=== PATIENT | female | born 1980 | race Hispanic/Latino ===

== ENCOUNTER 2017-11-02 19:23 | Emergency (ER) | payer SELFPAY ==
--- NOTE | 2017-11-02 20:52 | RAD REPORT ---
EXAM DESCRIPTION: CT - Head Brain Wo Cont - 11/02/2017 8:31 pm CLINICAL HISTORY: Head injury status post fall. Head pain COMPARISON: None. TECHNIQUE: Computed axial tomography of the head was obtained. IV contrast was not requested. All CT scans are performed using dose optimization technique as appropriate and may include automated exposure control or mA/KV adjustment according to patient size. FINDINGS: An intracranial bleed is not seen . The ventricles are normal in caliber. No extra-axial fluid collection is noted. Fluid within the sinuses/ mastoids is not seen. IMPRESSION: No acute intracranial abnormality is seen. If patient's symptoms persist MRI of the bra in would be recommended.
--- NOTE | 2017-11-02 21:15 | RAD REPORT ---
EXAM DESCRIPTION: RAD - Lumbar Spine 3 Views - 11/02/2017 8:55 pm CLINICAL HISTORY: Back pain FINDINGS: The alignment of the lumbar spine is satisfactory. No fracture or dislocation is seen. Minimal spondylosis involves the lumbar spine
--- NOTE | 2017-11-02 21:16 | RAD REPORT ---
EXAM DESCRIPTION: RAD - Thoracic Spine Ap/Lat - 11/02/2017 8:52 pm CLINICAL HISTORY: Back pain FINDINGS: The alignment of the thoracic spine is satisfactory. No fracture is seen. Minimal spondylosis involves the thoracic spine
--- NOTE | 2017-11-02 21:46 | ER ---
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 I hit my back and head.". Transition of care: patient was not received from another setting of care. Onset of symptoms was November 02, 2017 at 18:00. Care prior to arrival: None. 19:45 Method Of Arrival: Wheelchair lk1 19:45 Acuity: JUSTYNA 3 lk1 Triage Assessment: 19:47 General: Appears in no apparent distress. Behavior is calm, cooperative, appropriate lk1 for age. Pain: Complains of pain in back and head Pain currently is 9 out of 10 on a pain scale. Musculoskeletal: Swelling absent. 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 - Social history:: Smoking status: Patient/guardian denies using tobacco. - Family history:: not pertinent. - Hospitalizations: : No recent hospitalization is reported. Screenin:03 Abuse screen: Denies threats or abuse. Nutritional screening: No deficits noted. jd3 Tuberculosis screening: No symptoms or risk factors identified. Fall Risk Fall in past 12 months (25 points). Total Del Castillo Fall Scale indicates Low Risk Score (25-44 pts). Fall prevention measures have been instituted. Placed close to Nursing Station Frequent Obs/Assesments occuring Family Present and informed to notify staff if they need to leave bedside. Assessment: 20:01 General: Appears in no apparent distress. uncomfortable, Behavior is calm, cooperative, jd3 appropriate for age. Pain: Complains of pain in head and back Quality of pain is described as throbbing. Neuro: Level of Consciousness is awake, alert, obeys commands, Oriented to person, place, time, situation, Appropriate for age. Cardiovascular: Heart tones S1 S2 present Capillary refill < 3 seconds Patient's skin is warm and dry. Respiratory: Airway is patent Respiratory effort is even, unlabored, Respiratory pattern is regular, symmetrical, Breath sounds are clear bilaterally. GI: Abdomen is round Patient currently denies diarrhea, nausea, vomiting. : No signs and/or symptoms were reported regarding the genitourinary system. EENT: No signs and/or symptoms were reported regarding the EENT system. Derm: Skin is intact, Skin is dry, Skin is normal, Skin temperature is warm. Musculoskeletal: Circulation, motion, and sensation intact. Range of motion: intact in all extremities. 21:23 Reassessment: Patient appears in no apparent distress at this time. Patient and/or jd3 family updated on plan of care and expected duration. Pain level reassessed. Patient is alert, oriented x 3, equal unlabored respirations, skin warm/dry/pink. 22:02 Reassessment: Patient appears in no apparent distress at this time. Patient and/or jd3 family updated on plan of care and expected duration. Pain level reassessed. Patient is alert, oriented x 3, equal unlabored respirations, skin warm/dry/pink. pt reported understanding of of discharge instructions, pt assisted to to the front of the ER in wheelchair. Vital Signs: 19:48 BP 131 / 79; Pulse 71; Resp 16; Temp 97.9(O); Pulse Ox 97% on R/A; Weight 104.33 kg lk1 (R); Height 5 ft. 0 in. (152.40 cm) (R); Pain 9/10; 21:23 BP 127 / 76; Pulse 65; Resp 17 S; Pulse Ox 97% on R/A; jd3 22:04 BP 130 / 81; Pulse 65; Resp 17 S; Pulse Ox 97% on R/A; jd3 19:48 Body Mass Index 44.92 (104.33 kg, 152.40 cm) lk1 ED Course: 19:26 Patient arrived in ED. am2 19:47 Triage completed. lk1 19:50 Arm band placed on right wrist. lk1 20:01 Noé Ramires RN is Primary Nurse. jd3 20:04 Patient has correct armband on for positive identification. Bed in low position. Call jd3 light in reach. Adult w/ patient. 20:08 Daren Kirkpatrick MD is Attending Physician. rn 20:30 CT completed. Patient tolerated procedure well. Patient moved to CT via wheelchair. Patient moved back from CT. 20:31 CT Head Brain wo Cont In Process Unspecified. EDMS 20:52 X-ray completed. Portable x-ray completed in exam room. Patient tolerated procedure jb2 well. 20:52 XRAY Lumbar Spine (3 Views) In Process Unspecified. EDMS 20:52 XRAY Thoracic Spine (Ap/lat) In Process Unspecified. EDMS 21:59 No provider procedures requiring assistance completed. Patient did not have IV access jd3 during this emergency room visit. Administered Medications: No medications were administered Outcome: 21:46 Discharge ordered by . rn 21:59 Discharged to home via wheelchair. jd3 21:59 Condition: stable 21:59 Discharge instructions given to patient, family, Instructed on discharge instructions, follow up and referral plans. Demonstrated understanding of instructions, follow-up care. 22:05 Patient left the ED. jd3 Signatures: Dispatcher [employer] EDMS Tad Shabazz2 Johan Higgins Daren Kirkpatrick MD MD rn Kluge, Leah RN RN [email or web address] Lauren Chamberlain Jonathon RN RN jd3
--- NOTE | 2017-11-02 21:46 | EDPHYS ---
Physician Documentation [facility] Name: Ashli Pereyra Age: 37 yrs Sex: Female : 1980 Arrival Date: 11/02/2017 Time: 19:26 Bed 19 Private MD: ED Physician Daren Kirkpatrick HPI: 11/02 21:43 This 37 yrs old Female presents to ER via Wheelchair with complaints of Back rn Pain, Headache. 21:43 The patient presents with pain and an injury. The symptoms are located in the low back, rn thoracic area and lumbar area. Onset: The symptoms/episode began/occurred just prior to arrival. The pain does not radiate. Severity of symptoms: At their worst the symptoms were moderate, in the emergency department the symptoms are unchanged. The patient has not experienced similar symptoms in the past. Reports back pain and headache after fall from standing, was ambulatory, no LOC, not on blood thinner, no weakness or focal neurological deficit. . 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 - Social history:: Smoking status: Patient/guardian denies using tobacco. - Family history:: not pertinent. - Hospitalizations: : No recent hospitalization is reported. ROS: 21:43 Constitutional: Negative for fever, chills, and weight loss, Eyes: Negative for injury, rn pain, redness, and discharge, Neck: Negative for injury, pain, and swelling, Cardiovascular: Negative for chest pain, palpitations, and edema, Respiratory: Negative for shortness of breath, cough, wheezing, and pleuritic chest pain, Abdomen/GI: Negative for abdominal pain, nausea, vomiting, diarrhea, and constipation, Back: + for injury and pain MS/Extremity: Negative for injury and deformity, Skin: Negative for injury, rash, and discoloration, Neuro: Negative for weakness, numbness, tingling, and seizure. Exam: 21:43 Constitutional: This is a well developed, well nourished patient who is awake, alert, rn and in no acute distress. Head/Face: Normocephalic, atraumatic. Eyes: Pupils equal round and reactive to light, extra-ocular motions intact. Lids and lashes normal. Conjunctiva and sclera are non-icteric and not injected. Cornea within normal limits. Periorbital areas with no swelling, redness, or edema. Neck: Trachea midline, no thyromegaly or masses palpated, and no cervical lymphadenopathy. Supple, full range of motion without nuchal rigidity, or vertebral point tenderness. No Meningismus. Cardiovascular: Regular rate and rhythm with a normal S1 and S2. No gallops, murmurs, or rubs. Normal PMI, no JVD. No pulse deficits. Respiratory: Lungs have equal breath sounds bilaterally, clear to auscultation and percussion. No rales, rhonchi or wheezes noted. No increased work of breathing, no retractions or nasal flaring. Abdomen/GI: Soft, non-tender, with normal bowel sounds. No distension or tympany. No guarding or rebound. No evidence of tenderness throughout. Back: + midline upper lumbar and lower thoracic tenderness, no stepoff MS/ Extremity: Pulses equal, no cyanosis. Neurovascular intact. Full, normal range of motion. Equal circumference. Neuro: Awake and alert, GCS 15, oriented to person, place, time, and situation. Cranial nerves II-XII grossly intact. Motor strength 5/5 in all extremities. Sensory grossly intact. Cerebellar exam normal. Normal gait. Vital Signs: 19:48 BP 131 / 79; Pulse 71; Resp 16; Temp 97.9(O); Pulse Ox 97% on R/A; Weight 104.33 kg lk1 (R); Height 5 ft. 0 in. (152.40 cm) (R); Pain 9/10; 21:23 BP 127 / 76; Pulse 65; Resp 17 S; Pulse Ox 97% on R/A; jd3 22:04 BP 130 / 81; Pulse 65; Resp 17 S; Pulse Ox 97% on R/A; jd3 19:48 Body Mass Index 44.92 (104.33 kg, 152.40 cm) lk1 MDM: 20:08 Patient medically screened. rn 21:43 Differential diagnosis: Fracture vertebral fracture. Data reviewed: vital signs, nurses rn notes, radiologic studies, CT scan, and as a result, I will discharge patient. Counseling: I had a detailed discussion with the patient and/or guardian regarding: the historical points, exam findings, and any diagnostic results supporting the discharge/admit diagnosis, the need for outpatient follow up, to return to the emergency department if symptoms worsen or persist or if there are any questions or concerns that arise at home. Special discussion: I discussed with the patient/guardian in detail that at this point there is no indication for admission to the hospital. It is understood, however, that if the symptoms persist or worsen the patient needs to return immediately for re-evaluation. 11/02 20:14 Order name: CT Head Brain wo Cont; Complete Time: 21:42 rn 11/02 20:14 Order name: XRAY Lumbar Spine (3 Views); Complete Time: 21:42 rn 11/02 20:14 Order name: XRAY Thoracic Spine (Ap/lat); Complete Time: 21:42 rn Administered Medications: No medications were administered Disposition: 11/02/17 21:46 Discharged to Home. Impression: Superficial injury of head, Back contusion. - Condition is Stable. - Discharge Instructions: Contusion, Head Injury, Adult. - Medication Reconciliation Form, Thank You Letter, Antibiotic Education, Prescription Opioid Use, Work release form form. - Follow up: Private Physician; When: As needed; Reason: Recheck today's complaints, Re-evaluation by your physician. - Problem is new. - Symptoms have improved. Signatures: Dispatcher [employer] Daren Salvador MD MD rn Kluge, Leah RN RN lk1 Noé Ramires RN RN jd3
[2017-11-02 22:14] VITALS: TEMP 97.9; O2SAT 97
[2017-11-02 22:18] VITALS: BP 130/81
== END 2017-11-02 22:05 | disposition home or self-care (01) ==
LOC: ER 19:23
DX: S30.0XXA Contusion of lower back and pelvis, initial encounter (principal); S00.90XA Unspecified superficial injury of unspecified part of head, initial encounter; W18.30XA Fall on same level, unspecified, initial encounter; Y93.9 Activity, unspecified; Y92.9 Unspecified place or not applicable
CPT/HCPCS: 70450; 72070; 72100; 99284

== ENCOUNTER 2019-05-20 14:14 | Emergency (ER) | payer SELFPAY ==
--- NOTE | 2019-05-20 15:22 | EDPHYS ---
Physician Documentation [facility] Name: Ashli Pereyra Age: 39 yrs Sex: Female : 1980 Arrival Date: 05/20/2019 Time: 14:15 Bed 13 Private MD: ED Physician Ronald Swartz HPI: 05/20 15:19 This 39 yrs old Female presents to ER via Ambulatory with complaints of Jaw jmm Pain. 15:19 The patient presents with broken tooth/teeth, pain. Onset: The symptoms/episode jmm began/occurred acutely, 2 month(s) ago. Modifying factors: The symptoms are alleviated by nothing, the symptoms are aggravated by chewing, food. This is a 39 year old female with no chronic medical conditions that presents to the ED with complaints of dental pain worsening over the past 3 days with no relief from OTC medications. Patient states she cracked her tooth 2 months ago with not much pain. Pain intensified 3 days ago. Denies fever, denies chills. . 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 - Social history:: Smoking status: Patient/guardian denies using tobacco. - Ebola Screening: : No symptoms or risks identified at this time. ROS: 15:19 Constitutional: Negative for fever, chills, and weight loss, Cardiovascular: Negative jmm for chest pain, palpitations, and edema, Respiratory: Negative for shortness of breath, cough, wheezing, and pleuritic chest pain. 15:19 ENT: Positive for dental pain. 15:19 All other systems are negative. Exam: 15:19 Constitutional: This is a well developed, well nourished patient who is awake, alert, jmm and in no acute distress. Head/Face: atraumatic. Eyes: EOMI, no conjunctival erythema appreciated 15:19 Neck: Trachea midline, Supple Chest/axilla: Normal chest wall appearance and motion. Cardiovascular: Regular rate and rhythm. No edema appreciated Respiratory: Normal respirations, no respiratory distress appreciated Abdomen/GI: Non distended, soft Back: Normal ROM Skin: General appearance color normal MS/ Extremity: Moves all extremities, no obvious deformities appreciated, no edema noted to the lower extremities Neuro: Awake and alert, normal gait Psych: Behavior is normal, Mood is normal, Patient is cooperative and pleasant 15:19 ENT: Dental exam: dental caries, that is moderate, specifically in the lower right first bicuspid (#28), lower right second bicuspid (#29), lower right first molar (#30) and lower right second molar (#31), gum swelling, not appreciated. Vital Signs: 14:24 BP 141 / 94; Pulse 80; Resp 16; Temp 98.4; Pulse Ox 100% on R/A; Weight 90.72 kg; hb Height 5 ft. (152.40 cm); Pain 10/10; 15:24 BP 136 / 89; Pulse 77; Resp 17; Temp 98.4(O); Pulse Ox 100% ; rb1 14:24 Body Mass Index 39.06 (90.72 kg, 152.40 cm) hb MDM: 15:19 Patient medically screened. [facility] 15:19 Data reviewed: vital signs, nurses notes. Counseling: I had a detailed discussion with [facility] the patient and/or guardian regarding: the historical points, exam findings, and any diagnostic results supporting the discharge/admit diagnosis, the need for outpatient follow up, to return to the emergency department if symptoms worsen or persist or if there are any questions or concerns that arise at home. 15:19 ED course: Patient is alert and non toxic in appearance in the ED. I discussed with the [facility] patient the need to follow up with dentist. Patient is otherwise given strict return precautions. patient understood and agrees with the plan of care. . Administered Medications: No medications were administered Disposition: 05/20/19 15:21 Discharged to Home. Impression: Dental caries. - Condition is Stable. - Discharge Instructions: Dental Pain. - Prescriptions for penicillin V potassium 500 mg Oral tablet - take 1 tablet by ORAL route every 6 hours for 10 days; 40 tablet. Ultracet 37.5- 325 mg Oral Tablet - take 1 tablet by ORAL route every 6 hours - for up to 5 days; do not exceed 8 tablets per day.; 12 tablet. - Medication Reconciliation Form, Thank You Letter, Antibiotic Education, Prescription Opioid Use form. - Follow up: Private Physician; When: 2 - 3 days; Reason: Recheck today's complaints, Continuance of care, Re-evaluation by your physician. Signatures: Kapil Velasquez PA PA jmm Barber, Rebecca, RN RN [facility] Cherrie Gabriel RN RN Corrections: (The following items were deleted from the chart) 15:45 15:21 05/20/2019 15:21 Discharged to Home. Impression: Dental caries. Condition is rb1 Stable. Forms are Medication Reconciliation Form, Thank You Letter, Antibiotic Education, Prescription Opioid Use. Follow up: Private Physician; When: 2 - 3 days; Reason: Recheck today's complaints, Continuance of care, Re-evaluation by your physician. jose
--- NOTE | 2019-05-20 15:22 | ER ---
Nurse's Notes [facility] Name: Ashli Pereyra Age: 39 yrs Sex: Female : 1980 Arrival Date: 05/20/2019 Time: 14:15 Bed 13 Private MD: Diagnosis: Dental caries Presentation: 05/20 14:23 Presenting complaint: Bottom right molar pain x 3 weeks, bilateral lower jaw pain x 3 hb days. Transition of care: patient was not received from another setting of care. Onset of symptoms was May 17, 2019. Risk Assessment: Do you want to hurt yourself or someone else? Patient reports no desire to harm self or others. Initial Sepsis Screen: Does the patient meet any 2 criteria? No. Patient's initial sepsis screen is negative. Does the patient have a suspected source of infection? No. Patient's initial sepsis screen is negative. Care prior to arrival: Medication(s) given: Tylenol, at 0800 today. 14:23 Method Of Arrival: Ambulatory hb 14:23 Acuity: JUSTYNA 4 hb Triage Assessment: 14:28 General: Behavior is calm, cooperative. 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 - Social history:: Smoking status: Patient/guardian denies using tobacco. - Ebola Screening: : No symptoms or risks identified at this time. Screenin:30 Abuse screen: Denies threats or abuse. Nutritional screening: sensitive to hot and rb1 cold, therefore does not want to eat.. Tuberculosis screening: No symptoms or risk factors identified. Fall Risk None identified. Assessment: 14:28 General: Appears uncomfortable, Reports chills for Denies fever. Pain: Complains of rb1 pain in lower jaw Pain currently is 10 out of 10 on a pain scale. Pain began x 3 weeks Aggravated by eating, drinking, heat, cold. Neuro: Level of Consciousness is awake, alert, obeys commands, Oriented to person, place, time, situation. Cardiovascular: Patient's skin is warm and dry. Respiratory: Airway is patent Respiratory effort is even, unlabored, Respiratory pattern is regular, symmetrical. GI: No signs and/or symptoms were reported involving the gastrointestinal system. : No signs and/or symptoms were reported regarding the genitourinary system. Musculoskeletal: Range of motion: intact in all extremities. 15:25 Reassessment: Patient appears in no apparent distress at this time. No changes from [facility] previously documented assessment. Vital Signs: 14:24 BP 141 / 94; Pulse 80; Resp 16; Temp 98.4; Pulse Ox 100% on R/A; Weight 90.72 kg; hb Height 5 ft. (152.40 cm); Pain 10/10; 15:24 BP 136 / 89; Pulse 77; Resp 17; Temp 98.4(O); Pulse Ox 100% ; rb1 14:24 Body Mass Index 39.06 (90.72 kg, 152.40 cm) hb ED Course: 14:15 Patient arrived in ED. as 14:24 Triage completed. hb 14:24 Arm band placed on. hb 14:25 Veronica Theodore, RN is Primary Nurse. [facility] 14:28 Kapil eVlasquez PA is PHCP. [facility] 14:28 Ronald Swartz MD is Attending Physician. [facility] 14:30 Patient has correct armband on for positive identification. Bed in low position. Call [facility] light in reach. Side rails up X 1. Pulse ox on. NIBP on. 15:45 No provider procedures requiring assistance completed. Patient did not have IV access rb1 during this emergency room visit. Administered Medications: No medications were administered Outcome: 15:21 Discharge ordered by . [facility] 15:45 Patient left the ED. [facility] 15:45 Discharged to home ambulatory, with family. [facility] 15:45 Condition: stable 15:45 Discharge instructions given to patient, Instructed on discharge instructions, follow up and referral plans. medication usage, Demonstrated understanding of instructions, follow-up care, medications, Prescriptions given X 2. Signatures: Kapil Velasquez PA PA [facility] Zandra Franklin as Veronica Theodore, RN RN [facility] Cherrie Gabriel RN RN
[2019-05-20 16:09] VITALS: BP 141/94; TEMP 98.4; O2SAT 100
== END 2019-05-20 15:45 | disposition home or self-care (01) ==
LOC: ER 14:14
DX: K02.9 Dental caries, unspecified (principal)
CPT/HCPCS: 99283

== ENCOUNTER 2021-08-28 11:15 | Emergency (ER) | payer SELFPAY ==
[2021-08-28 12:26] LABS: Absolute Lymphocytes (CBC) 1.9 K/uL (0.7-4.9); Hematocrit 41.8 % (36.0-45.0); Lymphocytes % 25.7 % (15.3-44.8); MPV 8.3 fL (7.6-11.3)
[2021-08-28] MEDS ORDERED: DOXYCYCLINE 100 MG CAP PO ONE (12:44)
[2021-08-28] MEDS ORDERED: NA CHLORIDE 0.9% 100 ML ONE (12:44)
[2021-08-28] MEDS ORDERED: CEFTRIAXONE 1000 MG/VIAL ONE (12:44)
[2021-08-28 12:47] LABS: Potassium 3.8 mmol/L (3.5-5.1)
--- NOTE | 2021-08-28 13:21 | ER ---
Nurse's Notes [facility] Name: Ashli Pereyra Age: 41 yrs Sex: Female : 1980 Arrival Date: 08/28/2021 Time: 11:18 Bed 16 Private MD: Diagnosis: Bitten by cat;Local infection of the skin and subcutaneous tissue, unspecified Presentation: 08/28 11:23 Chief complaint: Patient states: she was bitten by a cat yesterday. patient was seen at ap3 the [facility] this morning, and they sent her here. It is reported animal control was contacted as the patient works at the [employer]. Coronavirus screen: At this time, the client does not indicate any symptoms associated with coronavirus-19. Ebola Screen: No symptoms or risks identified at this time. Initial Sepsis Screen: Does the patient meet any 2 criteria? No. Patient's initial sepsis screen is negative. Does the patient have a suspected source of infection? No. Patient's initial sepsis screen is negative. Risk Assessment: Do you want to hurt yourself or someone else? Patient reports no desire to harm self or others. Onset of symptoms was August 27, 2021. 11:23 Method Of Arrival: Ambulatory ap3 11:23 Acuity: JUSTYNA 3 ap3 Triage Assessment: 11:26 Bite description: bite sustained to palm of left hand by a cat, animal information: ap3 vaccination(s) is not up to date. General: Appears in no apparent distress. Behavior is calm, cooperative. Pain: Complains of pain in left hand Pain currently is 9 out of 10 on a pain scale. at worst was 10 out of 10 on a pain scale. Pain began 1 day ago. Neuro: Level of Consciousness is awake, alert, obeys commands, Oriented to person, place, time, situation, Appropriate for age Speech is normal. Respiratory: Airway is patent Respiratory effort is even, unlabored. 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 Last tetanus immunization: unknown, Flu vaccine is not up to date. - Social history:: Smoking status: Patient denies any tobacco usage or history of. Screenin:27 Abuse screen: Denies threats or abuse. Nutritional screening: No deficits noted. ap3 Tuberculosis screening: No symptoms or risk factors identified. Fall Risk None identified. Assessment: 12:03 General: Appears in no apparent distress. comfortable, Behavior is calm, cooperative. ic1 Pain: Complains of pain in heel of left hand, palm of left hand and Left first web space. Neuro: Level of Consciousness is awake, alert, obeys commands, Oriented to person, place, time, situation. Cardiovascular: No deficits noted. Respiratory: No deficits noted. GI: No deficits noted. : No deficits noted. EENT: No deficits noted. Derm: Skin is intact, Cat bite cody noted to dorsal region of L hand. Skin is pink, warm \T\ dry. Musculoskeletal: No deficits noted. Vital Signs: 11:23 BP 134 / 87; Pulse 70; Resp 17; Temp 97.8; Pulse Ox 100% ; Weight 99.34 kg; Height 5 ap3 ft. 0 in. (152.40 cm); Pain 9/10; 13:43 BP 118 / 80; Pulse 65; Resp 15; Pulse Ox 100% ; jl7 11:23 Body Mass Index 42.77 (99.34 kg, 152.40 cm) ap3 ED Course: 11:18 Patient arrived in ED. mr 11:25 Triage completed. ap3 11:28 Arm band placed on right wrist. ap3 11:28 Patient has correct armband on for positive identification. ap3 11:30 Lili Gong FNP-C [facility]. kb 11:30 Jorge Alberto Ibrahim MD is Attending Physician. kb 11:36 Ailyn Mayer RN is Primary Nurse. ic1 12:03 Door closed. Lights dimmed. ic1 12:03 Lactate Sent. ic1 12:03 Procalcitonin Sent. ic1 12:03 Blood Culture Adult (2) Sent. ic1 12:03 Basic Metabolic Panel Sent. ic1 12:03 CBC with Diff Sent. ic1 12:03 Inserted saline lock: 20 gauge in left antecubital area, using aseptic technique. Blood ic1 collected. 13:44 No provider procedures requiring assistance completed. IV discontinued, intact, jl7 bleeding controlled, No redness/swelling at site. Pressure dressing applied. Administered Medications: 12:44 Drug: Rocephin (cefTRIAXone) 1 grams Route: IV; Rate: calculated rate; Site: left ic1 antecubital; 13:00 Follow up: Response: No adverse reaction; IV Status: Completed infusion jl7 12:44 Drug: Doxycycline 100 mg Route: PO; ic1 13:43 Follow up: Response: No adverse reaction jl7 Outcome: 13:20 Discharge ordered by MD. malcolm 13:43 Discharged to home ambulatory, with family. ic1 13:43 Condition: stable 13:43 Discharge instructions given to patient, Instructed on discharge instructions, follow up and referral plans. Demonstrated understanding of instructions, follow-up care. 13:51 Patient left the ED. jl7 Signatures: Lili Gong, HARPER BECKERP-Avelina PalenciaalMarilin RN RN jl7 Lauren Castro RN RN ap3 Ailyn Mayer RN RN ic1 Corrections: (The following items were deleted from the chart) 11:26 11:25 PMHx: Hypertensive disorder; ap3 ap3
--- NOTE | 2021-08-28 13:21 | EDPHYS ---
Physician Documentation [facility] Name: Ashli Pereyra Age: 41 yrs Sex: Female : 1980 Arrival Date: 08/28/2021 Time: 11:18 Bed 16 Private MD: ED Physician Jorge Alberto Ibrahim HPI: 08/28 13:19 This 41 yrs old Female presents to ER via Ambulatory with complaints of Cat kb Bite. 13:19 The patient was bitten on the heel of left hand, by a cat, for an unknown reason, at [facility]. Onset: The symptoms/episode began/occurred yesterday. Animal information: The animal was reported to appear healthy. Secondary to the bite the patient reports pain, multiple puncture wounds. Associated signs and symptoms: Pertinent positives: erythema at site, pain at site, swelling at site. Severity of symptoms: At their worst the symptoms were moderate, in the emergency department the symptoms are unchanged. The patient has not experienced similar symptoms in the past. The patient has not recently seen a physician. Pt states she was bit by a cat at the [facility] yesterday. States she went to the clinic today for redness and swelling to site and was sent here for eval. 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 Last tetanus immunization: unknown, Flu vaccine is not up to date. - Social history:: Smoking status: Patient denies any tobacco usage or history of. ROS: 13:18 Constitutional: Negative for fever, chills, and weight loss. kb 13:18 Skin: Positive for erythema, puncture, swelling. 13:18 All other systems are negative. Exam: 13:18 Constitutional: This is a well developed, well nourished patient who is awake, alert, kb and in no acute distress. Head/Face: Normocephalic, atraumatic. ENT: Moist Mucous membranes Respiratory: Respirations even and unlabored. No increased work of breathing. Talking in full sentences MS/ Extremity: Pulses equal, no cyanosis. Neurovascular intact. Full, normal range of motion. Neuro: Awake and alert, GCS 15, oriented to person, place, time, and situation. Moves all extremities. Normal gait. Psych: Awake, alert, with orientation to person, place and time. Behavior, mood, and affect are within normal limits. 13:18 Skin: injury, bite(s), superficial, of the heel of left hand, puncture(s), that are superficial, of the heel of left hand. Vital Signs: 11:23 BP 134 / 87; Pulse 70; Resp 17; Temp 97.8; Pulse Ox 100% ; Weight 99.34 kg; Height 5 ap3 ft. 0 in. (152.40 cm); Pain 9/10; 13:43 BP 118 / 80; Pulse 65; Resp 15; Pulse Ox 100% ; jl7 11:23 Body Mass Index 42.77 (99.34 kg, 152.40 cm) ap3 MDM: 11:30 Patient medically screened. kb 13:17 Data reviewed: vital signs, nurses notes. Data reviewed: I have discussed the patient's kb presentation/case with the attending Emergency Department Physician;. Data interpreted: Pulse oximetry: on room air is 100 %. Interpretation: normal. Counseling: I had a detailed discussion with the patient and/or guardian regarding: the historical points, exam findings, and any diagnostic results supporting the discharge/admit diagnosis, lab results, the need for outpatient follow up, a family practitioner, to return to the emergency department if symptoms worsen or persist or if there are any questions or concerns that arise at home. ED course: Pt given strict return precautions. Will return for any signs of worsening condition. . 08/28 11:32 Order name: CBC with Diff; Complete Time: 12:32 kb 08/28 11:32 Order name: Basic Metabolic Panel; Complete Time: 12:51 kb 08/28 11:32 Order name: Blood Culture Adult (2) kb 08/28 11:32 Order name: Procalcitonin; Complete Time: 13:06 kb 08/28 11:32 Order name: Lactate; Complete Time: 12:51 kb 08/28 11:32 Order name: IV Start; Complete Time: 12:03 kb Administered Medications: 12:44 Drug: Rocephin (cefTRIAXone) 1 grams Route: IV; Rate: calculated rate; Site: left ic1 antecubital; 13:00 Follow up: Response: No adverse reaction; IV Status: Completed infusion jl7 12:44 Drug: Doxycycline 100 mg Route: PO; ic1 13:43 Follow up: Response: No adverse reaction jl7 Disposition: 15:15 Co-signature as Attending Physician, Jorge Alberto Ibrahim MD I agree with the assessment and kdr plan of care. Disposition Summary: 08/28/21 13:20 Discharge Ordered Location: Home kb Condition: Stable kb Diagnosis - Bitten by cat kb - Local infection of the skin and subcutaneous tissue, unspecified kb Followup: kb - With: Emergency Department - When: As needed - Reason: Worsening of condition Followup: kb - With: Private Physician - When: 2 - 3 days - Reason: Recheck today's complaints, Continuance of care, Re-evaluation by your physician Discharge Instructions: - Discharge Summary Sheet kb - Animal Bite, Adult, [id number] kb - Cellulitis, Adult, [id number] kb Forms: - Medication Reconciliation Form kb - Thank You Letter kb - Antibiotic Education kb - Prescription Opioid Use kb - Work release form eb Prescriptions: - Augmentin 875-125 mg Oral Tablet - take 1 tablet by ORAL route every 12 hours for 10 days; 20 tablet; Refills: 0, kb Product Selection Permitted - Doxycycline Hyclate 100 mg Oral Tablet - take 1 tablet by ORAL route every 12 hours; 20 tablet; Refills: 0, Product kb Selection Permitted Signatures: Dispatcher [employer] EDMS Lili Gong, COMPOUNDING AND FINISHING SUPERVISOR-C COMPOUNDING AND FINISHING SUPERVISOR-Jorge Alberto Hernandez MD MD kdr Prokisch, Amanda, RN RN ap3 Ailyn Mayer RN RN ic1 Marilin Hernandez RN jl7 Corrections: (The following items were deleted from the chart) 11:26 11:25 PMHx: Hypertensive disorder; ap3 ap3
[2021-08-28 14:38] VITALS: TEMP 97.8; O2SAT 100
[2021-08-28 14:40] VITALS: BP 118/80
== END 2021-08-28 13:51 | disposition home or self-care (01) ==
LOC: ER 11:15
DX: L08.9 Local infection of the skin and subcutaneous tissue, unspecified (principal); W55.01XA Bitten by cat, initial encounter; Y92.89 Other specified places as the place of occurrence of the external cause
CPT/HCPCS: 36415; 80048; 83605; 84145; 85025; 87040; 96365; 99283

== ENCOUNTER 2024-07-23 08:09 | Emergency (ER) | payer SELFPAY ==
--- OUTSIDE RECORDS SUMMARY | 2024-07-23 08:13 | XMS REPORT | Continuity of Care Document ---
Author Name Unknown Address [address] [facility] [address] th[address] Address [address] [facility] [address] [place] [address] Care Team Providers Care Collection Card Clerk Name Role Phone Gary SEARS, [facility] Primary Care Physician [phone] [email or web address]_Kadiyala_S Attending Clinician Unavaila ble GC_GCBZW_Kadiyala_S Admitting Clinician Unavaila ble Medications Ordered Medication Name Filled Medication Name Start Date Stop Date Current Medication? Ordering Clinician Indication Dosage Frequency Signature (SIG) Comments Components Source metformin 1,000 mg tablet 12-21 00:00: 00 Yes 1mg Gallito Jorge gabapentin 100 mg capsule 12-21 00:00: 00 Yes 12mg Gallito Jorge TAKE 1 TABLET BY MOUTH TWICE A DAY 2022-08 00:00: 00 12-12 00:00 :00 No 1000 Gallito Jorge TAKE 1 TABLET FOR MIGRAINE RELIEF. MAY REPEAT EVERY 2 HOURS. MAX 200MG/DAY. 2022-08 00:00: 00 12-12 00:00 :00 No 25 Gallito Jorge TAKE 1 TABLET BID NEEDED 04-08 00:00: 00 12-12 00:00 :00 No 600 Gallito Jorge TAKE 1 TABLET TWICE A DAY NEEDED 04-08 00:00: 00 12-12 00:00 :00 No 500 Gallito Jorge TAKE 1 TABLET TWICE DAILY WITH MEALS - 00:00: 00 12-12 00:00 :00 No 500 Gallito Jorge Bromfed DM 2 mg-30 mg-10 mg/5 mL oral syrup 2022-0 7-11 00:00: 00 No 10mg/5 mL Dose Unknown 2022-0 7-11 00:00: 00 No Dose Unknown 2022-0 7-11 00:00: 00 No Dose Unknown 2-0 7-11 00:00: 00 No Bromfed DM 2 mg-30 mg-10 mg/5 mL oral syrup 2021-0 7-11 00:00: 00 Yes 10mg/5 mL Gallito Jorge Dose Unknown 2-0 7-11 00:00: 00 Yes Gallito Jorge Dose Unknown 202-0 7-11 00:00: 00 Yes Gallito Jorge Dose Unknown 2021-0 7-11 00:00: 00 Yes Gallito Jorge metformin ER 500 mg tablet,exte nded release 24 hr 2-0 6-10 00:00: 00 No 1mg metformin ER 500 mg tablet,exte nded release 24 hr 2-0 6-10 00:00: 00 Yes 1mg Gallito Jorge metformin 500 mg tablet 2-0 5-31 00:00: 00 No 1mg Dose Unknown 2021-0 5-31 00:00: 00 No Dose Unknown 2022-0 5-31 00:00: 00 No Dose Unknown 2022-0 5-31 00:00: 00 No metformin 500 mg tablet 2-0 5-31 00:00: 00 Yes 1mg Gallito Jorge Dose Unknown 2021-0 5-31 00:00: 00 Yes Gallito Jorge Dose Unknown 2022-0 5-31 00:00: 00 Yes Gallito Jorge Dose Unknown 2022-0 5-31 00:00: 00 Yes Gallito Jorge Dose Unknown 2022-0 5-27 00:00: 00 No Dose Unknown 2022-0 5-27 00:00: 00 No Dose Unknown 2022-0 5-27 00:00: 00 No Dose Unknown 2022-0 5-27 00:00: 00 Yes Gallito Jorge Dose Unknown 2022-0 5-27 00:00: 00 Yes Gallito Jorge Dose Unknown 2022-0 5-27 00:00: 00 Yes Gallito Jorge fluticasone propionate 50 mcg/actuati on nasal spray,suspe nsion 2019-0 3-14 00:00: 00 No 2mcg/ac tuation ProAir HFA 90 mcg/actuati on aerosol inhaler 10-12 00:00: 00 No 2mcg/ac tuation loratadine 10 mg tablet 10-12 00:00: 00 No 1mg azithromyci n 250 mg tablet 10-12 00:00: 00 No 1mg promethazin e-DM 6.25 mg-15 mg/5 mL oral syrup 10-12 00:00: 00 No 5mg/5 mL fluticasone propionate 50 mcg/actuati on nasal spray,suspe nsion 10-12 00:00: 00 Yes 2mcg/ac tuation Gallito Jorge ProAir HFA 90 mcg/actuati on aerosol inhaler 10-12 00:00: 00 Yes 2mcg/ac tuation Gallito Jorge loratadine 10 mg tablet 10-12 00:00: 00 Yes 1mg Gallito Jorge azithromyci n 250 mg tablet 10-12 00:00: 00 Yes 1mg Gallito Jorge promethazin e-DM 6.25 mg-15 mg/5 mL oral syrup 10-12 00:00: 00 Yes 5mg/5 mL Gallito Jorge Vital Signs Vital Name Observation Time Observation Value Comments S ource BP Diastolic 2023-12-22 09:22:00 84 mm[Hg] Aidan phen Felton Jorge Weight Measured 2023-12-22 09:22:00 215.60 pounds Gallito Jorge Height Measured 2023-12-22 09:22:00 60.98 inches Gallito Jorge Body Temperature 2023-12-22 09:22:00 98.20 degrees Gallito Jorge Heart Rate 2023-12-22 09:22:00 69.00 /min Elizabeth en F Luisito Respiratory Rate 2023-12-22 09:22:00 17.00 /min Gallito Jorge BP Systolic 2023-12-22 09:22:00 127 mm[Hg] Step hen F Luisito BP Systolic 2023-09-09 17:02:00 121 mm[Hg] Step hen F Luisito BP Diastolic 2023-09-09 17:02:00 81 mm[Hg] Aidan phen Felton Jorge Weight Measured 2023-09-09 17:02:00 215.80 pounds Gallito F Luisito Height Measured 2023-09-09 17:02:00 60.98 inches Gallito F Luisito Body Temperature 2023-09-09 17:02:00 98.30 degrees Gallito F Luisito Heart Rate 2023-09-09 17:02:00 86.00 /min Elizabeth en F Luisito Respiratory Rate 2023-09-09 17:02:00 Gallito F Luisito BP Systolic 2023-05-27 15:20:00 138 mm[Hg] Step hen F Luisito BP Diastolic 2023-05-27 15:20:00 82 mm[Hg] Aidan phen F Luisito Weight Measured 2023-05-27 15:20:00 205.40 pounds Gallito F Luisito Height Measured 2023-05-27 15:20:00 60.98 inches Gallito F Luisito Body Temperature 2023-05-27 15:20:00 98.20 degrees Gallito F Luisito Heart Rate 2023-05-27 15:20:00 85.00 /min Elizabeth en F Luisito Respiratory Rate 2023-05-27 15:20:00 19.00 /min Gallito F Luisito BP Systolic 2023-04-08 15:27:00 120 mm[Hg] Step hen F Luisito BP Diastolic 2023-04-08 15:27:00 76 mm[Hg] Aidan phen F Luisito Weight Measured 2023-04-08 15:27:00 210.20 pounds Gallito F Luisito Height Measured 2023-04-08 15:27:00 60.98 inches Gallito F Luisito Body Temperature 2023-04-08 15:27:00 98.50 degrees Gallito F Luisito Heart Rate 2023-04-08 15:27:00 83.00 /min Elizabeth en F Luisito Respiratory Rate 2023-04-08 15:27:00 Gallito F Luisito Respiratory Rate 2022-01-08 16:57:00 Gallito F Luisito BP Systolic 2022-01-08 16:57:00 142 mm[Hg] Step hen F Luisito BP Diastolic 2022-01-08 16:57:00 89 mm[Hg] Aidan phen F Luisito Weight Measured 2022-01-08 16:57:00 216.20 pounds Gallito F Luisito Height Measured 2022-01-08 16:57:00 60.98 inches Gallito F Luisito Body Temperature 2022-01-08 16:57:00 98.40 degrees Gallito F Luisito Heart Rate 2022-01-08 16:57:00 69.00 /min Elizabeth en F Luisito BP Systolic 2021-12-25 11:05:00 124 mm[Hg] Step hen F Luisito BP Diastolic 2021-12-25 11:05:00 87 mm[Hg] Aidan phen F Luisito Weight Measured 2021-12-25 11:05:00 216.00 pounds Gallito F Luisito Height Measured 2021-12-25 11:05:00 60.98 inches Gallito F Luisito Body Temperature 2021-12-25 11:05:00 98.20 degrees Gallito F Luisito Heart Rate 2021-12-25 11:05:00 73.00 /min Elizabeth en F Luisito Respiratory Rate 2021-12-25 11:05:00 18.00 /min Gallito F Luisito BP Systolic 2018-10-12 10:11:00 120 mm[Hg] Step hen F Luisito BP Diastolic 2018-10-12 10:11:00 78 mm[Hg] Aidan phen F Luisito Weight Measured 2018-10-12 10:11:00 215.40 pounds Gallito F Luisito Height Measured 2018-10-12 10:11:00 60.98 inches Gallito F Luisito Body Temperature 2018-10-12 10:11:00 98.50 degrees Gallito F Luisito Heart Rate 2018-10-12 10:11:00 89.00 /min Elizabeth en F Luisito Respiratory Rate 2018-10-12 10:11:00 16.00 /min Gallito F Luisito Plan of Care Planned Activity Planned Date Details Comments Source Goal Plan of Care Note [code = 91797-5] Goal Plan of Care Note [code = 21171-4] Goal Plan of Care Note [code = 16562-4] Goal Plan of Care Note [code = 76154-1] Goal Plan of Care Note [code = 63774-3] Goal Plan of Care Note [code = 12531-8] Goal Plan of Care Note [code = 44853-8] Goal Plan of Care Note [code = 19254-4] Goal Plan of Care Note [code = 51677-3] Goal Plan of Care Note [code = 37495-7] Goal Plan of Care Note [code = 74529-2] Goal Plan of Care Note [code = 75775-4] Goal Plan of Care Note [code = 41559-3] Goal Plan of Care Note [code = 74952-4] Goal Plan of Care Note [code = 31638-8] Goal Plan of Care Note [code = 17677-3] Goal Plan of Care Note [code = 84033-1] Goal Plan of Care Note [code = 29712-5] Goal Plan of Care Note [code = 89486-5] Goal Plan of Care Note [code = 27425-3] Goal Plan of Care Note [code = 95738-1] Goal Plan of Care Note [code = 32526-9] Goal Plan of Care Note [code = 43531-7] Goal Plan of Care Note [code = 19874-8] Goal Plan of Care Note [code = 00036-7] Goal Plan of Care Note [code = 79815-1] Encounters Start Date/Time End Date/Time Encounter Type Admission Type Attending [facility] Facility Care Department Encounter ID Source 2023-12-22 09:06:32 2023-12-22 09:06:32 Outpatient [facility] [id number] Gallito Ya Luisito 2023-12-22 00:00:00 2023-12-22 00:00:00 Outpatient Visit [facility] [id number] Gallito Ya Luisito 2023-09-09 16:57:59 2023-09-09 16:57:59 Outpatient [facility] [id number] Gallito Ya Luisito 2023-05-31 00:00:00 2023-05-31 00:00:00 Outpatient GC_GCBZW_Ka diyala_S [facility] [id number] [facility] 2023-05-27 15:11:54 2023-05-27 15:11:54 Outpatient [facility] [id number] Gallito Ya Luisito 2023-04-13 17:38:17 2023-04-13 17:38:17 Outpatient [facility] [id number] Gallito Felton Luisito 2023-04-11 16:24:22 2023-04-11 16:24:22 Outpatient [facility] [id number] Gallito Jorge 2023-04-08 15:17:07 2023-04-08 15:17:07 Outpatient [facility] [id number] Gallito Jorge 2022-08-27 14:52:48 2022-08-27 14:52:48 Outpatient [facility] [id number] Gallito Jorge 2022-08-19 00:00:00 2022-08-19 00:00:00 Outpatient Visit [id number] 2022-02-08 00:00:00 2022-02-08 00:00:00 Outpatient Visit [id number] Results Test Description Test Time Test Comments Results Result Co mments Source ALBUMIN/CREATININE RATIO, URINE, [id number] 05:37:43* Test Item Value Reference Range Interpretation Comme nts CREATININE, URINE, CONC. (test code = 2071) 319.2 MG/DL NOT ESTAB ALBUMIN, URINE, RANDOM (test code = 01353) 11.1 MG/DL NOT ESTAB CALC ALBUMIN/CREAT, RND (test code = 56629) 35 MG/G <30 H Note: Albumin/Cr eatinine ratio reference interval reflects ADA and NKF guidelines. UNLESS OTHERWISE INDICATED, ALL TESTING PERFORMED AT [facility] [address] [place] [address] SIGNAL OPERATOR: LAURA VELASQUEZ M.D. CLIA NUMBER [id number] [place] [id number] ALBUMIN/CREATININE RATIO, RANDOM [id number] 00:00:00* Test Item Value Reference Range Interpretation Comme nts CREATININE, URINE, CONC. (te st code = 207) 319.2 MG/DL ALBUMIN, URINE, RANDOM (test code = 30080) 11.1 MG/DL CALC ALBUMIN/CREAT, RND (onesimo t code = 82769) 35 MG/G Gallito JorgeCOMPREHENSIVE METABOLIC [id number] 00:01:50* Test Item Value Reference Range Interpretation Comme nts GLUCOSE (test code = 2216) 126 MG/DL 70-99 H BUN (test code = 2207) 21 MG/DL 6-20 H CREATININE (test code = 2214) 0.83 MG/DL 0.60-1.30 eGFR (2020 CKD-EPI) (test co de = 50953) 89 ML/MIN/1.73 >60 CALC BUN/CREAT (test code = 5) 25 RATIO 6-28 SODIUM (test code = 223) 138 MEQ/L 133-146 POTASSIUM (test code = 2228) 3.9 MEQ/L 3.5-5.4 CHLORIDE (test code = 221) 99 MEQ/L 95-107 CARBON DIOXIDE (test code = 2206) 23 MEQ/L 19-31 CALCIUM (test code = 2209) 10.1 MG/DL 8.5-10.5 PROTEIN, TOTAL (test code = 222) 8.0 G/DL 6.1-8.3 ALBUMIN (test code = 220) 4.9 G/DL 3.5-5.2 CALC GLOBULIN (test code = 2240) 3.1 G/DL 1.9-3.7 CALC A/G RATIO (test code = 2234) 1.6 RATIO 1.0-2.6 BILIRUBIN, TOTAL (test code = 2206) 0.5 MG/DL <=1.2 ALKALINE PHOSPHATASE (test code = 4) 62 U/L 40-115 AST (test code = 2218) 20 U/L 9-40 ALT (test code = 2219) 31 U/L 5-40 LIPID [id number] 00:01:50* Test Item Value Reference Range Interpretation Comme nts CHOLESTEROL (test code = 2210) 178 MG/DL <200 TRIGLYCERIDES (test code = 2232) 64 MG/DL <150 HDL CHOLESTEROL (test code = 2220) 50 MG/DL >39 CALC LDL CHOL (test code = 223) 113 MG/DL <100 H NOTE: CALCULATED LDL IS BASED ON YAMILE-ORTIZ METHOD WHICHINCLUDES ADJUSTABLE TRIGLYCERIDE:VLDL CHOLESTEROL RATIO.THIS FACTOR VARIES BY MEASURED TRIGLYCERIDE AND NON-HDLCHOLESTEROL CONCENTRATIONS WITH INCREASED CALCULATED LDL SEENIN HIGHER TRIGLYCERIDE OR LOWER NON-HDL SPECIMENS. FOR MOREINFORMATION, SEE CLIENT ANNOUNCEMENT AT [email or web address] [email or web address] RATIO LDL/HDL (test code = 2238) 2.26 RATIO <3.22 COMPREHENSIVE METABOLIC [id number] 00:00:00* Test Item Value Reference Range Interpretation Comme nts GLUCOSE (test code = 2217) 126 MG/DL BUN (test code = 2208) 21 MG/DL CREATININE (test code = 2214) 0.83 MG/DL eGFR (2020 CKD-EPI) (test co de = 53696) 89 ML/MIN/1.73 CALC BUN/CREAT (test code = 2235) 25 RATIO SODIUM (test code = 2231) 138 MEQ/L POTASSIUM (test code = 2228) 3.9 MEQ/L CHLORIDE (test code = 2215) 99 MEQ/L CARBON DIOXIDE (test code = 2206) 23 MEQ/L CALCIUM (test code = 2209) 10.1 MG/DL PROTEIN, TOTAL (test code = 2229) 8.0 G/DL ALBUMIN (test code = 2201) 4.9 G/DL CALC GLOBULIN (test code = 2240) 3.1 G/DL CALC A/G RATIO (test code = 2234) 1.6 RATIO BILIRUBIN, TOTAL (test code = 2207) 0.5 MG/DL ALKALINE PHOSPHATASE (test code = 2204) 62 U/L AST (test code = 2218) 20 U/L ALT (test code = 2219) 31 U/L Gallito Ya AustinLIPID [id number] 00:00:00* Test Item Value Reference Range Interpretation Comme nts CHOLESTEROL (test code = 2210) 178 MG/DL TRIGLYCERIDES (test code = 2232) 64 MG/DL HDL CHOLESTEROL (test code = 2220) 50 MG/DL CALC LDL CHOL (test code = 2237) 113 MG/DL RISK RATIO LDL/HDL (test cod e = 2238) 2.26 RATIO Gallito JorgeHEMOGLOBIN [id number] 03:59:01* Test Item Value Reference Range Interpretation Comme nts HEMOGLOBIN A1c (test code = 67680) 7.3 % 4.2-5.6 H POLISH DIABETE S ASSOCIATION GUIDELINES FOR HGB A1C: PREDIABETES/INCREASED RISK . . . . . . . 5.7-6.4% DIAGNOSIS OF DIABETES . . . . . . . . . >=6.5% WITH CONFIRMATION OR APPROPRIATE SYMPTOMS NOTE: ASSAY MAY BE AFFECTED BY HEMOGLOBINOPATHIES (SICKLE CELL ANEMIA, S-C DISEASE, OTHERS) OR ARTIFICIALLY LOWERED BY DECREASED RED CELL SURVIVAL (HEMOLYTIC ANEMIAS, BLOOD LOSS, ETC.). CONSIDER ALTERNATE TESTING OR LABORATORY CONSULTATION. HEMOGLOBIN [id number] 00:00:00* Test Item Value Reference Range Interpretation Comme [facility] HEMOGLOBIN A1c (test code = 51708) 7.3 % Gallito Sidhu, THIRD [id number] 06:38:07* Test Item Value Reference Range Interpretation Comme [facility] TSH, THIRD GENERATION (test code = 2821) 1.900 UIU/ML 0.400-4.100 UNLESS OTHERWISE INDICATED, ALL TESTING [facility]FORMED [facility] [address] [place] [address] SIGNAL OPERATOR: GERSON SALMERON M.D. IA NUMBER [id number] [place]. [id number] HEMOGLOBIN [id number] 05:35:36* Test Item Value Reference Range Interpretation Comme [facility] HEMOGLOBIN A1c (test code = 89717) 8.0 % 4.2-5.6 H POLISH DIABETE S ASSOCIATION GUIDELINES FOR HGB A1C: PREDIABETES/INCREASED RISK . . . . . . . 5.7-6.4% DIAGNOSIS OF DIABETES . . . . . . . . . >=6.5% WITH CONFIRMATION OR APPROPRIATE SYMPTOMS NOTE: ASSAY MAY BE AFFECTED BY HEMOGLOBINOPATHIES (SICKLE CELL ANEMIA, S-C DISEASE, OTHERS) OR ARTIFICIALLY LOWERED BY DECREASED RED CELL SURVIVAL (HEMOLYTIC ANEMIAS, BLOOD LOSS, ETC.). CONSIDER ALTERNATE TESTING OR LABORATORY CONSULTATION. COMPREHENSIVE METABOLIC [id number] 05:31:00* Test Item Value Reference Range Interpretation Comme nts GLUCOSE (test code = 2217) 162 MG/DL 70-99 H BUN (test code = 2208) 13 MG/DL 6-20 CREATININE (test code = 2214) 0.76 MG/DL 0.60-1.30 eGFR (2020 CKD-EPI) (test code = 88170) 100 ML/MIN/1.73 >60 CALC BUN/CREAT (test code = 2235) 17 RATIO 6-28 SODIUM (test code = 2231) 142 MEQ/L 133-146 POTASSIUM (test code = 2227) 4.4 MEQ/L 3.5-5.4 CHLORIDE (test code = 2214) 103 MEQ/L 95-107 CARBON DIOXIDE (test code = 2205) 28 MEQ/L 19-31 CALCIUM (test code = 2208) 9.9 MG/DL 8.5-10.5 PROTEIN, TOTAL (test code = 2228) 8.0 G/DL 6.1-8.3 ALBUMIN (test code = 2200) 4.8 G/DL 3.5-5.2 CALC GLOBULIN (test code = 0) 3.2 G/DL 1.9-3.7 CALC A/G RATIO (test code = 2233) 1.5 RATIO 1.0-2.6 BILIRUBIN, TOTAL (test code = 2206) 0.7 MG/DL See_Comment [Automated me ssage] The system which generated this result transmitted reference range: <=1.2. The reference range was not used to interpret this result as normal/abnormal. ALKALINE PHOSPHATASE (test code = 2203) 61 U/L 40-113 AST (test code = 2217) 50 U/L 9-40 H ALT (test code = 2218) 70 U/L 5-40 H CBC W/AUTO DIFF WITH [id number] 04:58:59* Test Item Value Reference Range Interpretation Comme nts WBC (test code = 1001) 7.2 K/UL 3.5-11.0 RBC (test code = 1002) 4.88 M/UL 3.80-5.40 HEMOGLOBIN (test code = 1003) 15.4 G/DL 11.5-15.5 HEMATOCRIT (test code = 1004) 43.6 % 34.0-45.0 MCV (test code = 1005) 89.3 fL 80.0-99.0 MCH (test code = 1006) 31.6 PG 25.0-33.0 MCHC (test code = 1007) 35.3 G/DL 31.0-36.0 RDW (test code = 1038) 12.1 % 11.5-15.0 NEUTROPHILS (test code = 1008) 60.1 % LYMPHOCYTES (test code = 1010) 31.1 % MONOCYTES (test code = 1011) 6.5 % EOSINOPHILS (test code = 1012) 1.2 % BASOPHILS (test code = 1013) 0.8 % IMMATURE GRANULOCYTES (test code = 1036) 0.3 % NUCLEATED RBCS (test code = 1065) 0.0 /100 WBC'S See_Comment [Automated messa ge] The system which generated this result transmitted reference range: 0.0. The reference range was not used to interpret this result as normal/abnormal. PLATELET COUNT (test code = 1015) 284 K/UL 130-400 ABSOLUTE NEUTROPHILS (test code = 1066) 4.34 K/UL 1.50-7.50 ABSOLUTE LYMPHOCYTES (test code = 1067) 2.25 K/UL 1.00-4.00 ABSOLUTE MONOCYTES (test code = 1068) 0.47 K/UL 0.20-1.00 ABSOLUTE EOSINOPHILS (test code = 1040) 0.09 K/UL 0.00-0.50 ABSOLUTE BASOPHILS (test code = 1069) 0.06 K/UL 0.00-0.20 ABS IMMATURE GRANULOCYTES (test code = 1020) 0.02 K/UL 0.00-0.10 ABS NUCLEATED RBCS (test code = 86882) 0.00 K/UL 0.00-0.11 [id number] 00:00:00* Test Item Value Reference Range Interpretation Comme nts TSH, THIRD GENERATION (test code = 2821) 1.900 UIU/ML HEMOGLOBIN [id number] 00:00:00* Test Item Value Reference Range Interpretation Comme nts HEMOGLOBIN A1c (test code = 69480) 8.0 % CBC W/AUTO [id number] 00:00:00* Test Item Value Reference Range Interpretation Comme nts WBC (test code = 1001) 7.2 K/UL RBC (test code = 1002) 4.88 M/UL HEMOGLOBIN (test code = 1003) 15.4 G/DL HEMATOCRIT (test code = 1004) 43.6 % MCV (test code = 1005) 89.3 fL MCH (test code = 1006) 31.6 PG MCHC (test code = 1007) 35.3 G/DL RDW (test code = 1038) 12.1 % NEUTROPHILS (test code = 1008) 60.1 % LYMPHOCYTES (test code = 1010) 31.1 % MONOCYTES (test code = 1011) 6.5 % EOSINOPHILS (test code = 1012) 1.2 % BASOPHILS (test code = 1013) 0.8 % IMMATURE GRANULOCYTES (test code = 1036) 0.3 % NUCLEATED RBCS (test code = 1065) 0.0 /100WBC'S PLATELET COUNT (test code = 1015) 284 K/UL ABSOLUTE NEUTROPHILS (test c ode = 1066) 4.34 K/UL ABSOLUTE LYMPHOCYTES (test c ode = 1067) 2.25 K/UL ABSOLUTE MONOCYTES (test cod e = 1068) 0.47 K/UL ABSOLUTE EOSINOPHILS (test c ode = 1040) 0.09 K/UL ABSOLUTE BASOPHILS (test cod e = 1069) 0.06 K/UL ABS IMMATURE GRANULOCYTES (t est code = 1020) 0.02 K/UL ABS NUCLEATED RBCS (test cod e = 27049) 0.00 K/UL COMPREHENSIVE METABOLIC [id number] 00:00:00* Test Item Value Reference Range Interpretation Comme nts GLUCOSE (test code = 2217) 162 MG/DL BUN (test code = 2208) 13 MG/DL CREATININE (test code = 2214) 0.76 MG/DL eGFR (2020 CKD-EPI) (test code = 07840) 100 ML/MIN/1.73 CALC BUN/CREAT (test code = 2235) 17 RATIO SODIUM (test code = 2231) 142 MEQ/L POTASSIUM (test code = 2228) 4.4 MEQ/L CHLORIDE (test code = 2215) 103 MEQ/L CARBON DIOXIDE (test code = 2206) 28 MEQ/L CALCIUM (test code = 2209) 9.9 MG/DL PROTEIN, TOTAL (test code = 2229) 8.0 G/DL ALBUMIN (test code = 2201) 4.8 G/DL CALC GLOBULIN (test code = 2240) 3.2 G/DL CALC A/G RATIO (test code = 2234) 1.5 RATIO BILIRUBIN, TOTAL (test code = 2207) 0.7 MG/DL ALKALINE PHOSPHATASE (test code = 2204) 61 U/L AST (test code = 2218) 50 U/L ALT (test code = 2219) 70 U/L [id number] 00:00:00* Test Item Value Reference Range Interpretation Comme nts TSH, THIRD GENERATION (test code = 2821) 1.900 UIU/ML HEMOGLOBIN [id number] 00:00:00* Test Item Value Reference Range Interpretation Comme nts HEMOGLOBIN A1c (test code = 06259) 8.0 % CBC W/AUTO [id number] 00:00:00* Test Item Value Reference Range Interpretation Comme nts WBC (test code = 1001) 7.2 K/UL RBC (test code = 1002) 4.88 M/UL HEMOGLOBIN (test code = 1003) 15.4 G/DL HEMATOCRIT (test code = 1004) 43.6 % MCV (test code = 1005) 89.3 fL MCH (test code = 1006) 31.6 PG MCHC (test code = 1007) 35.3 G/DL RDW (test code = 1038) 12.1 % NEUTROPHILS (test code = 1008) 60.1 % LYMPHOCYTES (test code = 1010) 31.1 % MONOCYTES (test code = 1011) 6.5 % EOSINOPHILS (test code = 1012) 1.2 % BASOPHILS (test code = 1013) 0.8 % IMMATURE GRANULOCYTES (test code = 1036) 0.3 % NUCLEATED RBCS (test code = 1065) 0.0 /100WBC'S PLATELET COUNT (test code = 1015) 284 K/UL ABSOLUTE NEUTROPHILS (test c ode = 1066) 4.34 K/UL ABSOLUTE LYMPHOCYTES (test c ode = 1067) 2.25 K/UL ABSOLUTE MONOCYTES (test cod e = 1068) 0.47 K/UL ABSOLUTE EOSINOPHILS (test c ode = 1040) 0.09 K/UL ABSOLUTE BASOPHILS (test cod e = 1069) 0.06 K/UL ABS IMMATURE GRANULOCYTES (t est code = 1020) 0.02 K/UL ABS NUCLEATED RBCS (test cod e = 27536) 0.00 K/UL COMPREHENSIVE METABOLIC [id number] 00:00:00* Test Item Value Reference Range Interpretation Comme nts GLUCOSE (test code = 2217) 162 MG/DL BUN (test code = 2208) 13 MG/DL CREATININE (test code = 2214) 0.76 MG/DL eGFR (2020 CKD-EPI) (test code = 56581) 100 ML/MIN/1.73 CALC BUN/CREAT (test code = 2235) 17 RATIO SODIUM (test code = 2231) 142 MEQ/L POTASSIUM (test code = 2228) 4.4 MEQ/L CHLORIDE (test code = 2215) 103 MEQ/L CARBON DIOXIDE (test code = 2206) 28 MEQ/L CALCIUM (test code = 2209) 9.9 MG/DL PROTEIN, TOTAL (test code = 2229) 8.0 G/DL ALBUMIN (test code = 2201) 4.8 G/DL CALC GLOBULIN (test code = 2240) 3.2 G/DL CALC A/G RATIO (test code = 2234) 1.5 RATIO BILIRUBIN, TOTAL (test code = 2207) 0.7 MG/DL ALKALINE PHOSPHATASE (test code = 2204) 61 U/L AST (test code = 2218) 50 U/L ALT (test code = 2219) 70 U/L HEMOGLOBIN [id number] 00:00:00* Test Item Value Reference Range Interpretation Comme nts HEMOGLOBIN A1c (test code = 30176) 8.0 % Gallito Ya [facility] W/AUTO [id number] 00:00:00* Test Item Value Reference Range Interpretation Comme nts WBC (test code = 1001) 7.2 K/UL RBC (test code = 1002) 4.88 M/UL HEMOGLOBIN (test code = 1003) 15.4 G/DL HEMATOCRIT (test code = 1004) 43.6 % MCV (test code = 1005) 89.3 fL MCH (test code = 1006) 31.6 PG MCHC (test code = 1007) 35.3 G/DL RDW (test code = 1038) 12.1 % NEUTROPHILS (test code = 1008) 60.1 % LYMPHOCYTES (test code = 1010) 31.1 % MONOCYTES (test code = 1011) 6.5 % EOSINOPHILS (test code = 1012) 1.2 % BASOPHILS (test code = 1013) 0.8 % IMMATURE GRANULOCYTES (test code = 1036) 0.3 % NUCLEATED RBCS (test code = 1065) 0.0 /100WBC'S PLATELET COUNT (test code = 1015) 284 K/UL ABSOLUTE NEUTROPHILS (test c ode = 1066) 4.34 K/UL ABSOLUTE LYMPHOCYTES (test c ode = 1067) 2.25 K/UL ABSOLUTE MONOCYTES (test cod e = 1068) 0.47 K/UL ABSOLUTE EOSINOPHILS (test c ode = 1040) 0.09 K/UL ABSOLUTE BASOPHILS (test cod e = 1069) 0.06 K/UL ABS IMMATURE GRANULOCYTES (t est code = 1020) 0.02 K/UL ABS NUCLEATED RBCS (test cod e = 21584) 0.00 K/UL Gallito JorgeCOMPREHENSIVE METABOLIC [id number] 00:00:00* Test Item Value Reference Range Interpretation Comme nts GLUCOSE (test code = 2217) 162 MG/DL BUN (test code = 2208) 13 MG/DL CREATININE (test code = 2214) 0.76 MG/DL eGFR (2020 CKD-EPI) (test code = 41555) 100 ML/MIN/1.73 CALC BUN/CREAT (test code = 2235) 17 RATIO SODIUM (test code = 2231) 142 MEQ/L POTASSIUM (test code = 2228) 4.4 MEQ/L CHLORIDE (test code = 2215) 103 MEQ/L CARBON DIOXIDE (test code = 2206) 28 MEQ/L CALCIUM (test code = 2209) 9.9 MG/DL PROTEIN, TOTAL (test code = 2229) 8.0 G/DL ALBUMIN (test code = 2201) 4.8 G/DL CALC GLOBULIN (test code = 2240) 3.2 G/DL CALC A/G RATIO (test code = 2234) 1.5 RATIO BILIRUBIN, TOTAL (test code = 2207) 0.7 MG/DL ALKALINE PHOSPHATASE (test code = 2204) 61 U/L AST (test code = 2218) 50 U/L ALT (test code = 2219) 70 U/L Gallito [id number] 00:00:00* Test Item Value Reference Range Interpretation Comme nts TSH, THIRD GENERATION (test code = 2821) 1.900 UIU/ML Gallito Ya Luisito
[2024-07-23] MEDS ORDERED: ACETAMINOPHEN 500 MG TAB ONE (08:31)
[2024-07-23] MEDS ORDERED: KETOROLAC 30 MG/ML INJ ONE (08:31)
[2024-07-23 08:59] LABS: SARS-CoV-2 Antigen CONTROL BLUE LINE VIS/BG OK
[2024-07-23 09:00] LABS: SARS-CoV-2 Antigen Rapid Res Positive (Negative)
--- NOTE | 2024-07-23 09:21 | ER ---
Nurse's Notes [facility] Name: Ashli Pereyra Age: 44 yrs Sex: Female : 1980 Arrival Date: 07/23/2024 Time: 08:09 Bed 14 Private MD: Diagnosis: Streptococcal pharyngitis;SARS-associated coronavirus as the cause of diseases classified elsewhere Presentation: 07/23 08:21 Chief complaint: Patient states: flu like symptoms x2 days. reports cough, sore throat, kc6 with fever that started today. states it was 100 at home, didn't take anything for it. Coronavirus screen: At this time, the client does not indicate any symptoms associated with coronavirus-19. Ebola Screen: No symptoms or risks identified at this time. Initial Sepsis Screen: Does the patient meet any 2 criteria? HR > 90 bpm. Does the patient have a suspected source of infection? No. Patient's initial sepsis screen is negative. Risk Assessment: Do you want to hurt yourself or someone else? Patient reports no desire to harm self or others. Onset of symptoms was July 23, 2024. 08:21 Method Of Arrival: Ambulatory kc6 08:21 Acuity: JUSTYNA 4 kc6 Triage Assessment: 08:22 General: Appears in no apparent distress. comfortable, obese, well groomed, well kc6 developed, Behavior is calm, cooperative, appropriate for age, Reports fever for 0-12 hours. Pain: Denies pain. EENT: Reports pain when swallowing. Neuro: Level of Consciousness is awake, alert, obeys commands, Oriented to person, place, time, situation, Appropriate for age. Cardiovascular: Capillary refill < 3 seconds. Respiratory: Reports cough that is non-productive, Airway is patent Trachea midline Respiratory effort is even, unlabored, Respiratory pattern is regular, symmetrical. GI: No signs and/or symptoms were reported involving the gastrointestinal system. : No signs and/or symptoms were reported regarding the genitourinary system. Derm: No signs and/or symptoms reported regarding the dermatologic system. Skin is intact, is healthy with good turgor, Skin is pink, warm \T\ dry. Musculoskeletal: No signs and/or symptoms reported regarding the musculoskeletal system. Circulation, motion, and sensation intact. Range of motion: intact in all extremities. 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 - Infectious Disease History:: Denies. - Social history:: Smoking status: Patient denies any tobacco usage or history of. Screenin:24 [facility] ED Fall Risk Assessment (Adult) History of falling in the last 3 months, kc6 including since admission No falls in past 3 months (0 pts) Confusion or Disorientation No (0 pts) Intoxicated or Sedated No (0 pts) Impaired Gait No (0 pts) Mobility Assist Device Used No (0 pt) Altered Elimination No (0 pt) Score/Fall Risk Level 0 - 2 = Low Risk Oriented to surroundings, Maintained a safe environment. Abuse screen: Denies threats or abuse. Denies injuries from another. Nutritional screening: No deficits noted. Tuberculosis screening: No symptoms or risk factors identified. Assessment: 08:24 Reassessment: please see triage. kc6 09:28 Reassessment: Patient appears in no apparent distress at this time. No changes from kc6 previously documented assessment. Patient and/or family updated on plan of care and expected duration. Pain level reassessed. Patient is alert, oriented x 3, equal unlabored respirations, skin warm/dry/pink. Vital Signs: 08:21 BP 141 / 81; Pulse 98; Resp 18 S; Temp 99.1(O); Pulse Ox 99% on R/A; Height 5 ft. 0 in. kc6 (R); 09:28 BP 135 / 70; Pulse 85; Resp 16 S; Pulse Ox 99% on R/A; kc6 ED Course: 08:12 Patient arrived in ED. mr 08:12 Antonia Ward PA-C is PHCP. sb4 08:12 Hayder Olvera MD is Attending Physician. sb4 08:18 Irais Palacio, MICKIE is Primary Nurse. kc6 08:22 Triage completed. kc6 08:22 Arm band placed on. kc6 08:24 Patient has correct armband on for positive identification. Bed in low position. Call kc6 light in reach. Side rails up X 1. Pulse ox on. NIBP on. Door closed. Noise minimized. Lights dimmed. Pillow given. 08:24 Patient maintains SpO2 saturation greater than 95% on room air. kc6 08:39 Strep Sent. kc6 08:39 Flu Sent. kc6 08:39 SARS RAPID Sent. kc6 08:57 Chest Pa And Lat (2 Views) XRAY In Process Unspecified. EDMS 09:28 No provider procedures requiring assistance completed. Patient did not have IV access kc6 during this emergency room visit. Administered Medications: 08:39 Drug: Ketorolac IM 30 mg IM once Route: IM; Site: right deltoid; kc6 09:09 Follow up: Response: No adverse reaction kc6 08:39 Drug: Acetaminophen PO 1000 mg PO once Route: PO; kc6 09:10 Follow up: Response: No adverse reaction kc6 Medication: 09:28 VIS not applicable for this client. kc6 Outcome: 09:20 Discharge ordered by . sb4 09:28 Discharged to home ambulatory, kc6 09:28 Condition: good 09:28 Discharge instructions given to patient, Instructed on discharge instructions, follow up and referral plans. medication usage, Demonstrated understanding of instructions, follow-up care, medications, Prescriptions given X 1, 09:29 Patient left the ED. kc6 Signatures: Dispatcher [employer] EDOK Avelina Blanchard, Reg Reg mr Irais Palacio RN RN kc6 Antonia Ward PA-C PA-C sb4 Corrections: (The following items were deleted from the chart) 08:23 08:22 PSHx: None; kc6 kc6
--- NOTE | 2024-07-23 09:21 | EDPHYS ---
Physician Documentation [facility] Name: Ashli Pereyra Age: 44 yrs Sex: Female : 1980 Arrival Date: 07/23/2024 Time: 08:09 Bed 14 Private MD: ED Physician Hayder Olvera HPI: 07/23 08:27 This 44 yrs old Female presents to ER via Ambulatory with complaints of Sore sb4 Throat, Fever. 08:27 cough and congestion started 2 days ago, woke up this morning with a fever. denies sick sb4 contacts. denies chest pain or shortness of breath. denies any n/v/d. has not taken any meds [employer]. 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 - Infectious Disease History:: Denies. - Social history:: Smoking status: Patient denies any tobacco usage or history of. ROS: 08:27 Cardiovascular: Negative for chest pain, palpitations, and edema, sb4 08:27 Constitutional: Positive for fever, 08:27 ENT: Positive for hoarseness, sinus congestion, sore throat, 08:27 Respiratory: Positive for cough, 08:27 All other systems are negative, Exam: 08:27 Head/Face: Normocephalic, atraumatic. Eyes: Extra-ocular motions intact. Periorbital sb4 areas with no swelling, redness, or edema. ENT: Mucous membranes moist. Cardiovascular: Regular rate and rhythm with a normal S1 and S2. Respiratory: No increased work of breathing, no retractions or nasal flaring. Abdomen/GI: Soft, non-tender, no distension. Skin: Warm, dry with normal turgor. Normal color with no rashes, no lesions, and no evidence of cellulitis. 08:27 Constitutional: The patient appears alert, awake, obviously ill, 08:29 ENT: TM's: are normal, no evidence of bulging, no erythema, Posterior pharynx: Tonsils: sb4 bilaterally enlarged, with erythema, no exudate, 08:32 Respiratory: the patient does not display signs of respiratory distress, Respirations: sb4 normal, Breath sounds: are clear throughout, Vital Signs: 08:21 BP 141 / 81; Pulse 98; Resp 18 S; Temp 99.1(O); Pulse Ox 99% on R/A; Height 5 ft. 0 in. kc6 (R); 09:28 BP 135 / 70; Pulse 85; Resp 16 S; Pulse Ox 99% on R/A; kc6 MDM: 08:19 Medical Screening Exam initiated sb4 08:32 Differential diagnosis: bronchitis, group A strep tonsillitis, influenza, laryngitis, sb4 pharyngitis, upper respiratory infection, viral syndrome. 08:57 Independent interpretation of the following test(s) in the Emergency Department X-Ray: sb4 My interpretation is my interpretation of the chest xray images are no acute consolidation or evidence of pneumonia. 09:20 Data reviewed: vital signs, nurses notes, lab test result(s), radiologic studies, and sb4 as a result, I will discharge patient. Counseling: I had a detailed discussion with the patient and/or guardian regarding the historical points, exam findings, and any diagnostic results supporting the discharge/admit diagnosis, lab results, radiology results, to return to the emergency department if symptoms worsen or persist or if there are any questions or concerns that arise at home. 07/23 08:26 Order name: SARS RAPID; Complete Time: 09:01 sb4 07/23 08:26 Order name: Flu; Complete Time: 09:01 sb4 07/23 08:26 Order name: Strep; Complete Time: 09:01 sb4 07/23 08:26 Order name: Chest Pa And Lat (2 Views) XRAY sb4 Administered Medications: 08:39 Drug: Ketorolac IM 30 mg IM once Route: IM; Site: right deltoid; kc6 09:09 Follow up: Response: No adverse reaction kc6 08:39 Drug: Acetaminophen PO 1000 mg PO once Route: PO; kc6 09:10 Follow up: Response: No adverse reaction kc6 Disposition Summary: 07/23/24 09:20 Discharge Ordered Notes: Location: Home sb4 Problem: new sb4 Symptoms: have improved sb4 Condition: Stable sb4 Diagnosis - Streptococcal pharyngitis sb4 - SARS-associated coronavirus as the cause of diseases classified elsewhere sb4 Followup: sb4 - With: Emergency Department - When: As needed - Reason: Trouble breathing, Worsening of condition Discharge Instructions: - Discharge Summary Sheet sb4 - Strep Throat, Adult, [id number] sb4 - 10 Things You Can Do to Manage Your COVID-19 Symptoms at Home - [facility] (02/13/2021) sb4 Forms: - Antibiotic Education sb4 - Patient Portal Instructions sb4 - Leadership Thank You Letter sb4 Prescriptions: - Amoxicillin 875 mg Oral Tablet - take 1 tablet ORAL route every 12 hours for 10 days; 20 tablet; Refills: 0, sb4 Product Selection Permitted Signatures: Dispatcher [employer] Irais Bonilla, RN RN kc6 Antonia Ward, PA-C PA-C sb4 Corrections: (The following items were deleted from the chart) 08:23 08:22 PSHx: None; kc6 kc6 08:26 08:26 Chest Pa And Lat (2 Views)+[email or web address] ordered. EDMS EDMS
--- NOTE | 2024-07-23 09:34 | RAD REPORT ---
EXAMINATION: TWO VIEW CHEST XR CLINICAL INDICATION: Female, 44 years old. [facility] MAIN Congestion;Cough;Fever Bed Name: 14 TECHNIQUE: 2 view radiographs of the chest were performed. COMPARISON: No prior exam. FINDINGS: The lungs are hypoinflated which somewhat limits evaluation. Lungs are overall clear. No pneumothorax or sizable effusion. The heart is normal in size. Mediastinal contours are unremarkable. IMPRESSION: No acute or significant abnormalities.
[2024-07-23 09:41] VITALS: TEMP 99.1; O2SAT 99
[2024-07-23 09:46] VITALS: BP 135/70
== END 2024-07-23 09:29 | disposition home or self-care (01) ==
LOC: ER 08:09
DX: U07.1 COVID-19 (principal); J02.0 Streptococcal pharyngitis
CPT/HCPCS: 36415; 71046; 87081; 87804; 87811; 96372; 99284